=== PATIENT | female | born 1980 | race Caucasian/White ===

== ENCOUNTER 2019-02-01 21:47 | Emergency (ER) | payer BC ==
--- NOTE | 2019-02-01 22:11 | EDM.PDOC ---
ED HPI GENERAL MEDICAL PROBLEM - General Chief Complaint: Bite:Animal, Insect Stated Complaint: bug bite Time Seen by Provider: 02/01/19 21:55 Source of Information: Reports: Patient. Denies: Old Records (No [facility] records available) History Limitations: Reports: No Limitations - History of Present Illness INITIAL COMMENTS - FREE TEXT/NARRATIVE: Patient drove herself to the emergency room via private automobile for evaluation of a possible sting versus insect bite on her left hand, which she noticed when she woke up at 8 AM this morning. She does have some mild pruritus but no other significant allergic-type symptoms, including angioedema, dysphagia , etc. with no previous history of significant reactions to insect bites. Her tetanus booster is apparently up-to-date. Patient did apply ice packs and take 50 mg of Benadryl at 9 AM and 17:00 hours this afternoon with no significant improvement in her symptoms. She complains of about 5/10 mild discomfort and some increased swelling during the day. She has not taken any Tylenol, NSAIDs, etc. to this point. No recent history of abdominal pain, heartburn, nausea, diarrhea, melena, gross hematochezia, or any food intolerance, including fatty foods, etc.. The patient also denies any recent fever, cough, wheezing, dyspnea , etc.. Onset: Unknown/Unsure Onset Date: 02/01/19 Onset Time: 08:00 Duration: Getting Worse. No: Other Location: Reports: Upper Extremity, Left. Denies: Head, Face, Neck, Chest, Abdomen, Pelvis Quality: Reports: Ache, Burning Severity: Mild Improves with: Reports: None Worsens with: Reports: None Context: Reports: Other (As above). 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) (As above) Right Hand Pain Score (Numeric/FACES): 5 - Related Data Allergies Allergy/AdvReac Type Severity Reaction Status Date / Time azithromycin [From Zithromax] Allergy Rash Verified 02/01/19 21:49 Home Meds: Home Meds diphenhydrAMINE HCl [Benadryl] 50 mg PO Q4HR PRN #30 capsule 02/01/19 [Rx] Past Medical History Cardiovascular History: Reports: None Respiratory History: Reports: None Genitourinary History: Reports: Renal Calculus 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: Psychiatric History: Reports: None Endocrine/Metabolic History: Reports: Obesity/BMI 30+ - Past Surgical History HEENT Surgical History: Reports: Oral Surgery, Other (See Below) Other HEENT Surgeries/Procedures: Multiple teeth extractions Cardiovascular Surgical History: Reports: None Respiratory Surgical History: Reports: None GI Surgical History: Reports: Cholecystectomy Female Surgical History: Reports: Lithotripsy/ESWL Social & Family History - Tobacco Use Smoking Status *Q: Never Smoker Tobacco Use Within Last Twelve Months: No Used Tobacco, but Quit: No Smoking Cessation Information Provided To Patient: No Second Hand Smoke Exposure: No Second Hand Smoke Education Provided: No ED ROS GENERAL - Review of Systems Review Of Systems: ROS reveals no pertinent complaints other than HPI. ED EXAM, ANIMAL BITE - Physical Exam Exam: See Below Exam Limited By: No Limitations General Appearance: Alert, WD/WN, No Apparent Distress Eye Exam: Bilateral Eye: EOMI, Normal Inspection (No nystagmus), PERRL Ears: Normal External Exam, Normal Canal, Hearing Grossly Normal, Normal TMs Nose: Normal Inspection, Normal Mucosa, No Blood Throat/Mouth: Normal Lips, Normal Gums, Normal Oropharynx, Normal Voice, No Airway Compromise. No: Normal Teeth (Multiple missing teeth) Head: Atraumatic, Normocephalic. No: Facial Swelling, Facial Tenderness, Sinus Tenderness Neck: Normal Inspection, Supple, Non-Tender, Full Range of Motion. No: Lymphadenopathy (L), Lymphadenopathy (R), Thyromegaly Respiratory/Chest: No Respiratory Distress, Lungs Clear, Normal Breath Sounds, No Accessory Muscle Use, Chest Non-Tender. No: Pleural Rub, Retractions Cardiovascular: Normal Peripheral Pulses, Regular Rate, Rhythm, No Edema, No Gallop, No JVD, No Murmur, No Rub. No: Gallop/S3, Gallop/S4, Friction Rub Peripheral Pulses: 2+: Radial (L), Radial (R) GI/Abdominal: Normal Bowel Sounds, Soft, Non-Tender, No Organomegaly, No Distention, No Abnormal Bruit, No Mass, Other (Obese). No: Guarding (Female) Exam: Deferred Rectal (Female) Exam: Deferred Back Exam: Normal Inspection, Full Range of Motion. No: CVA Tenderness (L), CVA Tenderness (R), Muscle Spasm Extremities: Normal Range of Motion, No Pedal Edema, Normal Capillary Refill, Redness (23 centimeter in diameter area of mild trace erythema with mild swelling over the lateral mid dorsal surface of the fifth left metacarpal region with no stinger noted). No: Non-Tender (Mild localized palpation pain over the insect bite site), Joint Swelling, Mark's Sign, Increased Warmth Neurological: Alert, Oriented, CN II-XII Intact, Normal Cognition, Normal Gait, No Motor/Sensory Deficits Psychiatric: Normal Affect, Normal Mood Skin Exam: Other (As above). No: Ecchymosis, Rash Lymphadenopathy: Right: No Adenopathy Lymphatic: No Adenopathy Course - Vital Signs Last Recorded V/S: Last Vital Signs Temp 36.3 C 02/01/19 21:50 Pulse 76 02/01/19 21:50 Resp 19 02/01/19 21:50 BP 136/68 02/01/19 21:50 Pulse Ox 96 02/01/19 21:50 Vital Signs - 24 hr 02/01/19 21:50 Temperature [ 36.3 C Temporal] Pulse, 76 Peripheral [ Pulse Oximetry] Respiratory 19 Rate Blood Pressure 136/68 [Left Upper Arm ] O2 Sat by Pulse 96 Oximetry - Orders/Labs/Meds Orders: Active Orders 24 hr Category Date Time Status Obtain Past Medical Record [OM.PC] Routine Oth 02/01/19 22:11 Active Labs: none Meds: Medications Discontinued Medications Generic Name Dose Route Start Last Admin Trade Name Federicoq PRN Reason Stop Dose Admin Methylprednisolone Acetate 80 mg 02/01/19 22:12 02/01/19 22:41 Depo-Medrol IM 02/01/19 22:13 80 mg ONETIME ONE Administration - Radiology Interpretation Free Text/Narrative:: None Departure - Departure Time of Disposition: 22:56 Disposition: Home, Self-Care 01 Clinical Impression: Sting - Discharge Information *PRESCRIPTION DRUG MONITORING PROGRAM REVIEWED*: Not Applicable *COPY OF PRESCRIPTION DRUG MONITORING REPORT IN PATIENT MIGUEL ANGEL: Not Applicable Prescriptions: diphenhydrAMINE HCl [Benadryl] 50 mg PO Q4HR PRN #30 capsule PRN Reason: Rash Instructions: Insect Bite, Adult, [id number], Methylprednisolone Suspension for Injection Referrals: PCP,Unknown [Primary Care Provider] - Forms: ED Department Discharge Additional Instructions: 1. Follow up with your regular provider in 10-14 days as needed, if symptoms persist. Bring these discharge instructions with you to that visit.. 2. Tylenol 650 mg by mouth every 4 hours and/or OTC ibuprofen 2-3 tabs by mouth every 6 hours with food as directed./needed. You may stagger these medications for 48-72 hours only, which essentially means that you are receiving a pain medication about every 2 hours. 3. Sedation precautions with Benadryl as discussed 4. Stop using the Benadryl cream 5. Please remember that we are ALWAYS here for you and want to answer any questions you may have. Feel free to call the hospital any time and we call you back ROD. 5. Immediately after this visit verify that your cellular telephone's voicemail has been activated and is empty. Also verify that your home telephone 's answering machine is operating properly and has space to receive messages. Note that it is sometimes necessary for us to be able to contact you at a later date to discuss your medical care. - Problem List & Annotations (1) Sting SNOMED Code(s): 151741575 Code(s): [id number] - Status: Acute Priority: High Current Visit: Yes Onset Date: 02/01/19 Annotation/Comment:: Symptomatic relief as per discharge instructions. Continue previous medical therapy. IM Depo-Medrol given. Tetanus booster is up-to-date. - Problem List Review Problem List Initiated/Reviewed/Updated: Yes - My Orders Last 24 Hours: My Active Orders 02/01/19 22:11 Obtain Past Medical Record [OM.PC] Routine - Assessment/Plan Last 24 Hours: My Active Orders 02/01/19 22:11 Obtain Past Medical Record [OM.PC] Routine Assessment:: As above Plan: As above. Extensive precautions were given to the patient, who is in agreement with the treatment plan. See Patient Instructions for further treatment and plan.
[2019-02-01] MEDS ORDERED: methylPREDNISolone Acetate 80 MG/ML SDV IM ONE (22:12)
== END 2019-02-01 22:55 | disposition home or self-care (01) ==
LOC: LL.ED 21:47
DX: S60.562A Insect bite (nonvenomous) of left hand, initial encounter (principal); W57.XXXA Bitten or stung by nonvenomous insect and other nonvenomous arthropods, initial encounter
CPT/HCPCS: 96372; 99281; J1040